=== PATIENT | female | born 1965 | race Caucasian/White ===

== ENCOUNTER 2019-03-04 10:10 | Emergency (ER) | payer BC ==
[2019-03-04 11:05] LABS: Bacteria/HPF None Seen HPF (None Seen); Bilirubin Negative (Negative); Blood, Urine Trace (Negative); Clarity Clear (Clear); Glucose, Urine (Dipstick) Normal (Negative); Leukocyte Negative Leu/uL (Negative); Nitrite Negative (Negative); Protein, Urine (Dipstick) Negative (Neg-Trace); RBC/HPF 0-3 HPF (0-3); Squamous Epithelial 0-3 HPF (0-3); Urobilinogen Normal mg/dL (Less than 2); WBC/HPF 0-3 HPF (0-3)
[2019-03-04 11:23] LABS: #Basophils 0.1 thou/uL (0.0-0.2); #Eosinphils 0.1 thou/uL (0.0-0.7); #Lymphocytes 1.3 thou/uL (1.20-3.40); #Monocytes 0.7 thou/uL (0.11-0.59); #Neutrophils 8.1 thou/uL (1.40-6.50); %Basophils 0.5 % (0.0-1.0); %Eosinophils 0.8 % (0.0-10.0); %Lymphocytes 12.4 % (21.0-51.0); %Monocytes 7.1 % (0.0-10.0); %Neutrophils 79.2 % (42.0-75.0); Hemoglobin 12.8 g/dL (12.0-16.0); Mean Corpuscular HGB CONC 34.5 g/dL (32.0-36.0); Mean Corpuscular Volume 95.7 fL (78.0-98.0); Mean Platelet Volume 7.7 fL (7.4-10.4); Platelet Count 216 thou/uL (130-400); RBC Distribution Width 11.1 % (11.5-14.5); Red Blood Cell (RBC) Count 3.89 mill/uL (4.20-5.40); White Blood Cell (WBC) Count 10.2 thou/uL (4.8-10.8)
--- NOTE | 2019-03-04 11:45 | RAD ---
2 views of the abdomen INDICATION: left-sided abdominal pain FINDINGS: The bowel gas pattern is unobstructed. No suspicious calcification is evident. Lung bases a re clear. There is mild scattered degenerative change. IMPRESSION: No acute abnormality.
[2019-03-04 11:46] LABS: ALT (SGPT) 9 U/L (8-55); AST (SGOT) 16 U/L (5-34); Albumin 4.3 g/dL (3.5-5.0); Alkaline Phosphatase 65 U/L (40-110); Anion Gap 12 mmol/L (10-20); BUN (Urea Nitrogen) 12 mg/dL (9.8-20.1); Bilirubin, Total 0.4 mg/dL (0.2-1.2); Calc. Creatinine Clearance 0 mL/min (70-130); Carbon Dioxide 25 mmol/L (22-29); Chloride 105 mmol/L (98-107); Estimated GFR-MDRD 76; Globulin 2.6 g/dL (2.4-3.5); Glucose 101 mg/dL (70-105); Potassium 4.1 mmol/L (3.5-5.1); Protein, Total 6.9 g/dL (6.0-8.3); Sodium 138 mmol/L (136-145)
--- NOTE | 2019-03-04 11:53 | RAD ---
XR Chest 1 View Portable HISTORY: Left chest and breast pain. COMPARISON: None. FINDINGS: Heart size is borderline for portable technique. Mediastinal structures appear unremarkable . The lungs are clear of infiltrates. There are no signs of failure. IMPRESSION: Borderline heart size.
[2019-03-04] MEDS ORDERED: Mag-Al 1200 mg/1200 mg/30 ML UDCUP ONE (12:00)
[2019-03-04] MEDS ORDERED: Lidocaine Viscous Sol 2% 15 ml UD Cup ONE (12:00)
[2019-03-04] MEDS ORDERED: Ondansetron ODT 4 MG TAB ONE (12:00)
== END 2019-03-04 13:17 | disposition home or self-care (01) ==
LOC: ERS 10:10
DX: K29.70 Gastritis, unspecified, without bleeding (principal); K59.00 Constipation, unspecified
CPT/HCPCS: 36415; 71045; 74019; 80053; 81003; 81015; 84484; 85025; 93005; 94760; Q0162

== ENCOUNTER 2022-05-02 13:54 | Outpatient (CLI) | payer BC | END 2022-05-02 13:55 | disposition home or self-care (01) | LOC: SCSMRI 13:54 | PROVIDERS: ATTEND Orthopaedic Surgery | DX: M23.92 Unspecified internal derangement of left knee (principal); S83.242A Other tear of medial meniscus, current injury, left knee, initial encounter; S86.812A Strain of other muscle(s) and tendon(s) at lower leg level, left leg, initial encounter; M94.262 Chondromalacia, left knee ==

== ENCOUNTER 2023-10-29 15:43 | Inpatient (IN) | payer BC ==
[~2023-10-29 15:43] MED LIST: Iopamidol-370 76% 500 ML MDV (1 ML CHARGE) ONE; Magnevist 469MG/ML 20 ML VIAL ONE
[2023-10-29 16:59] LABS: #Basophils 0.08 10x3/uL (0.0-0.2); %Basophils 1.1 % (0.0-1.0); %Eosinophils 3.9 % (0.0-10.0); %Lymphocytes 13.7 % (21.0-51.0); %Monocytes 13.8 % (0.0-10.0); %Neutrophils 67.2 % (42.0-75.0); Hematocrit 37.5 % (36.0-47.0); Hemoglobin 12.7 g/dL (12.0-16.0); Mean Corpuscular HGB CONC 33.9 g/dL (32.0-36.0); Mean Corpuscular Hemoglobin 31.9 pg (27.0-31.0); Mean Corpuscular Volume 94.2 fL (78.0-98.0); Mean Platelet Volume 10.9 fL (7.4-10.4); Platelet Count 170 10x3/uL (130-400); RBC Distribution Width 15.5 % (11.5-14.5); Red Blood Cell (RBC) Count 3.98 mill/uL (4.20-5.40)
[2023-10-29 17:16] LABS: ALT (SGPT) 228 U/L (8-55); AST (SGOT) 177 U/L (5-34); Albumin 3.4 g/dL (3.5-5.0); Alkaline Phosphatase 259 U/L (40-110); Anion Gap 11 mmol/L (10-20); BUN (Urea Nitrogen) 14 mg/dL (9.8-20.1); Bilirubin, Total 3.5 mg/dL (0.2-1.2); Calc. Creatinine Clearance 0 mL/min (70-130); Calcium 9.3 mg/dL (7.8-10.44); Carbon Dioxide 24 mmol/L (22-29); Chloride 109 mmol/L (98-107); Estimated GFR 86; Globulin 4.1 g/dL (2.4-3.5); Glucose 97 mg/dL (70-105); Lipase 10 U/L (8-78); Potassium 3.9 mmol/L (3.5-5.1); Protein, Total 7.5 g/dL (6.0-8.3); Sodium 140 mmol/L (136-145)
[2023-10-29] MEDS ORDERED: Ondansetron PF 4 MG/2 ML Vial ONE (17:45)
[2023-10-29] MEDS ORDERED: Dicyclomine 20 MG/2 ML VIAL ONE (17:45)
[2023-10-29 18:19] LABS: Bilirubin 2+ (Negative); Blood, Urine Trace (Negative); CAUTI Indications for Culture Dysuria,urgency,freq; Calcium Oxalate Crystals Rare HPF (None Seen); Clarity Clear (Clear); Glucose, Urine (Dipstick) Normal (Negative); Ketone, Urine Negative (Negative); Leukocyte Negative Leu/uL (Negative); Nitrite Negative (Negative); Protein, Urine (Dipstick) 10 mg/dL (Neg-Trace); Specific Gravity, Urine 1.026 (1.002-1.036); WBC/HPF 0-3 HPF (0-3); pH, Urine 5.5 (5.0-9.0)
[2023-10-29 18:22] LABS: Bacteria/HPF 1+ HPF (None Seen)
[2023-10-29 18:23] LABS: Urine Culture Reflex No No
[2023-10-29 18:47] LABS: Influenza A by NAA Not Detected (NotDetected); Influenza B by NAA Not Detected (NotDetected); SARS-CoV-2 NAA Rapid Test Not Detected (NotDetected)
[2023-10-29] MEDS ORDERED: traMADol HCl 50 MG TAB PO PRN (19:47)
[2023-10-29] MEDS ORDERED: Ondansetron PF 4 MG/2 ML Vial IVP PRN (19:47)
[2023-10-29] MEDS ORDERED: Ondansetron ODT 4 MG TAB PO PRN (19:47)
[2023-10-29 21:28] VITALS: BMI 35.0
[2023-10-30] MEDS: Acetaminophen 325 MG TAB PO SCH (00:13)
[2023-10-30] MEDS: Levothyroxine Sodium 75 MCG TAB PO SCH (05:07)
[2023-10-30 06:23] LABS: #Basophils 0.04 10x3/uL (0.0-0.2); %Basophils 0.6 % (0.0-1.0); %Eosinophils 2.8 % (0.0-10.0); %Lymphocytes 16.1 % (21.0-51.0); %Monocytes 11.6 % (0.0-10.0); %Neutrophils 68.5 % (42.0-75.0); Hematocrit 35.5 % (36.0-47.0); Hemoglobin 11.7 g/dL (12.0-16.0); Mean Corpuscular Hemoglobin 32.1 pg (27.0-31.0); Mean Corpuscular Volume 97.3 fL (78.0-98.0); Mean Platelet Volume 10.9 fL (7.4-10.4); Platelet Count 155 10x3/uL (130-400); RBC Distribution Width 15.6 % (11.5-14.5); Red Blood Cell (RBC) Count 3.65 mill/uL (4.20-5.40)
[2023-10-30 06:41] LABS: ALT (SGPT) 228 U/L (8-55); AST (SGOT) 196 U/L (5-34); Albumin 3.1 g/dL (3.5-5.0); Alkaline Phosphatase 238 U/L (40-110); Anion Gap 12 mmol/L (10-20); BUN (Urea Nitrogen) 11 mg/dL (9.8-20.1); Bilirubin, Total 3.8 mg/dL (0.2-1.2); Calc. Creatinine Clearance 135 mL/min (70-130); Calcium 8.8 mg/dL (7.8-10.44); Carbon Dioxide 26 mmol/L (22-29); Chloride 107 mmol/L (98-107); Estimated GFR 97; Globulin 3.7 g/dL (2.4-3.5); Glucose 93 mg/dL (70-105); Protein, Total 6.8 g/dL (6.0-8.3); Sodium 141 mmol/L (136-145)
[2023-10-30] MEDS: Enoxaparin 40 MG (0.4 mL) SYRINGE SC SCH (09:36)
[2023-10-31 00:29] VITALS: BP 125/77; TEMP 98.8
== END 2023-10-31 01:10 | disposition short-term general hospital (02) | DRG 445 ==
LOC: ERS 15:43 → SURG B 19:47
PROVIDERS: ADMIT Internal Medicine; ATTEND Internal Medicine
DX: K83.1 Obstruction of bile duct (principal); N39.0 Urinary tract infection, site not specified; K82.8 Other specified diseases of gallbladder; R19.7 Diarrhea, unspecified; E03.9 Hypothyroidism, unspecified; L29.9 Pruritus, unspecified; Z87.891 Personal history of nicotine dependence; Z98.890 Other specified postprocedural states
CPT/HCPCS: 36415; 74177; 74183; 76377; 80053; 81001; 83605; 83690; 84443; 85025; 96374; A9579; J2405; Q9967

== ENCOUNTER 2023-12-06 04:01 | Inpatient (IN) | payer BC ==
[2023-12-06 05:04] VITALS: BMI 33.4
[2023-12-06] MEDS ORDERED: traMADol HCl 50 MG TAB PO PRN (08:17)
[2023-12-06] MEDS ORDERED: Guaifenesin DM 100-10/5 ML UDCUP PO PRN (08:17)
[2023-12-06] MEDS ORDERED: Acetaminophen 325 MG TAB PO PRN (08:17)
[2023-12-06] MEDS ORDERED: Ondansetron PF 4 MG/2 ML Vial IVP PRN (08:17)
[2023-12-06] MEDS ORDERED: Senokot S 8.6-50 MG TAB PO PRN (08:17)
[2023-12-06] MEDS ORDERED: Iopamidol-370 76% 500 ML MDV (1 ML CHARGE) ONE (10:05)
[2023-12-06] MEDS: Pantoprazole DR 40 MG TAB PO SCH (10:13)
[2023-12-06] MEDS: Enoxaparin 40 MG (0.4 mL) SYRINGE SC SCH (10:14)
[2023-12-06] MEDS: LevoFLOXacin 500 mg/D5W 500 MG in Premix 1 BAG IVPB SCH (10:16)
[2023-12-06] MEDS: Sodium Chloride 0.9% 1,000 ML IV SCH (10:17)
[2023-12-06] MEDS: Cosyntropin 250 MCG VIAL SLOW IVP SCH (10:20)
[2023-12-07 05:11] LABS: #Basophils 0.03 10x3/uL (0.0-0.2); %Basophils 0.3 % (0.0-1.0); %Eosinophils 1.4 % (0.0-10.0); %Lymphocytes 11.9 % (21.0-51.0); %Neutrophils 74.8 % (42.0-75.0); Hematocrit 29.7 % (36.0-47.0); Hemoglobin 10.3 g/dL (12.0-16.0); Mean Corpuscular HGB CONC 34.7 g/dL (32.0-36.0); Mean Corpuscular Hemoglobin 32.3 pg (27.0-31.0); Mean Corpuscular Volume 93.1 fL (78.0-98.0); Mean Platelet Volume 9.3 fL (7.4-10.4); Platelet Count 250 10x3/uL (130-400); RBC Distribution Width 13.1 % (11.5-14.5); Red Blood Cell (RBC) Count 3.19 mill/uL (4.20-5.40)
[2023-12-07] MEDS: Levothyroxine Sodium 75 MCG TAB PO SCH (05:16)
[2023-12-07 05:21] LABS: ALT (SGPT) 66 U/L (8-55); AST (SGOT) 28 U/L (5-34); Albumin 2.3 g/dL (3.5-5.0); Alkaline Phosphatase 127 U/L (40-110); Anion Gap 9 mmol/L (10-20); BUN (Urea Nitrogen) 29 mg/dL (9.8-20.1); Bilirubin, Total 0.5 mg/dL (0.2-1.2); Calc. Creatinine Clearance 92 mL/min (70-130); Calcium 7.9 mg/dL (7.8-10.44); Carbon Dioxide 18 mmol/L (22-29); Chloride 110 mmol/L (98-107); Estimated GFR 65; Globulin 3.2 g/dL (2.4-3.5); Glucose 95 mg/dL (70-105); Magnesium 2.4 mg/dL (1.6-2.6); Potassium 4.1 mmol/L (3.5-5.1); Protein, Total 5.5 g/dL (6.0-8.3); Sodium 133 mmol/L (136-145)
[2023-12-07 05:22] LABS: Phosphorus 3.2 mg/dL (2.3-4.7)
[2023-12-07 05:41] LABS: Free T4 (Free Thyroxine) 1.59 ng/dL (0.70-1.48); Thyroid Stimulating Hormone 1.0704 uIU/mL (0.35-4.94)
[2023-12-08] MEDS: LevoFLOXacin 500 MG TAB PO SCH (05:12)
[2023-12-08 07:57] LABS: ALT (SGPT) 124 U/L (8-55); AST (SGOT) 87 U/L (5-34); Albumin 2.2 g/dL (3.5-5.0); Alkaline Phosphatase 195 U/L (40-110); Anion Gap 12 mmol/L (10-20); BUN (Urea Nitrogen) 19 mg/dL (9.8-20.1); Bilirubin, Direct 0.3 mg/dL (0.1-0.3); Bilirubin, Total 0.5 mg/dL (0.2-1.2); Calc. Creatinine Clearance 96 mL/min (70-130); Carbon Dioxide 19 mmol/L (22-29); Chloride 110 mmol/L (98-107); Estimated GFR 69; Glucose 95 mg/dL (70-105); Potassium 3.7 mmol/L (3.5-5.1); Protein, Total 5.4 g/dL (6.0-8.3); Sodium 137 mmol/L (136-145)
[2023-12-08 14:50] VITALS: BP 107/72; TEMP 97.8
== END 2023-12-08 14:55 | disposition home or self-care (01) | DRG 682 ==
LOC: T4-B 04:41
PROVIDERS: ADMIT Internal Medicine; ATTEND Internal Medicine
DX: N17.9 Acute kidney failure, unspecified (principal); K83.1 Obstruction of bile duct; C22.1 Intrahepatic bile duct carcinoma; E87.1 Hypo-osmolality and hyponatremia; C23 Malignant neoplasm of gallbladder; E66.9 Obesity, unspecified; E03.9 Hypothyroidism, unspecified; E86.0 Dehydration; I10 Essential (primary) hypertension; R53.1 Weakness; Z98.890 Other specified postprocedural states; Z82.49 Family history of ischemic heart disease and other diseases of the circulatory system; Z90.49 Acquired absence of other specified parts of digestive tract; Z83.3 Family history of diabetes mellitus; Z68.33 Body mass index [BMI] 33.0-33.9, adult
CPT/HCPCS: 36415; 36416; 74174; 80048; 80053; 80076; 80400; 83735; 84100; 84439; 84443; 84481; 85025; 87040; J0834; J1650; J1956; J7030; Q9967

== ENCOUNTER 2024-01-05 10:44 | Inpatient (IN) | payer BC ==
[2024-01-05] MEDS ORDERED: Ondansetron PF 4 MG/2 ML Vial ONE (11:29)
[2024-01-05 11:31] LABS: #Basophils 0.06 10x3/uL (0.0-0.2); %Basophils 0.4 % (0.0-1.0); %Eosinophils 0.6 % (0.0-10.0); %Lymphocytes 7.5 % (21.0-51.0); %Monocytes 10.1 % (0.0-10.0); Mean Corpuscular HGB CONC 34.2 g/dL (32.0-36.0); Mean Corpuscular Hemoglobin 32.4 pg (27.0-31.0); Mean Corpuscular Volume 94.8 fL (78.0-98.0); Mean Platelet Volume 10.2 fL (7.4-10.4); Platelet Count 229 10x3/uL (130-400); Red Blood Cell (RBC) Count 4.01 mill/uL (4.20-5.40)
[2024-01-05 11:50] LABS: ALT (SGPT) 267 U/L (8-55); AST (SGOT) 128 U/L (5-34); Albumin 3.8 g/dL (3.5-5.0); Alkaline Phosphatase 240 U/L (40-110); Anion Gap 18 mmol/L (10-20); BUN (Urea Nitrogen) 30 mg/dL (9.8-20.1); Bilirubin, Total 1.2 mg/dL (0.2-1.2); Calc. Creatinine Clearance 0 mL/min (70-130); Calcium 9.4 mg/dL (7.8-10.44); Carbon Dioxide 16 mmol/L (22-29); Chloride 100 mmol/L (98-107); Estimated GFR 27; Globulin 5.1 g/dL (2.4-3.5); Glucose 113 mg/dL (70-105); Magnesium 2.5 mg/dL (1.6-2.6); Potassium 3.9 mmol/L (3.5-5.1); Protein, Total 8.9 g/dL (6.0-8.3); Sodium 130 mmol/L (136-145)
[2024-01-05] MEDS ORDERED: Senokot S 8.6-50 MG TAB PO PRN (15:31)
[2024-01-05] MEDS ORDERED: Ondansetron ODT 4 MG TAB PO PRN (15:31)
[2024-01-05] MEDS: FLU (Fluarix Triv) TS24-25(6MOS UP)/PF 45 MCG/0.5 ML Syringe IM ONE (16:21)
[2024-01-05] MEDS: Sodium Chloride 0.9% 1,000 ML IV SCH (16:22)
[2024-01-05] MEDS: Cefdinir 300 MG CAP PO SCH (19:49)
[2024-01-05] MEDS: Ondansetron PF 4 MG/2 ML Vial IVP PRN (22:34)
[2024-01-06 05:28] LABS: #Basophils 0.03 10x3/uL (0.0-0.2); %Basophils 0.3 % (0.0-1.0); %Eosinophils 1.4 % (0.0-10.0); %Lymphocytes 10.6 % (21.0-51.0); %Monocytes 14.1 % (0.0-10.0); %Neutrophils 73.2 % (42.0-75.0); Hematocrit 31.3 % (36.0-47.0); Hemoglobin 10.7 g/dL (12.0-16.0); Mean Corpuscular HGB CONC 34.2 g/dL (32.0-36.0); Mean Corpuscular Volume 93.7 fL (78.0-98.0); Mean Platelet Volume 10.8 fL (7.4-10.4); Platelet Count 154 10x3/uL (130-400); RBC Distribution Width 13.2 % (11.5-14.5); Red Blood Cell (RBC) Count 3.34 mill/uL (4.20-5.40)
[2024-01-06 06:16] LABS: ALT (SGPT) 216 U/L (8-55); AST (SGOT) 106 U/L (5-34); Albumin 2.9 g/dL (3.5-5.0); Alkaline Phosphatase 178 U/L (40-110); Anion Gap 13 mmol/L (10-20); BUN (Urea Nitrogen) 27 mg/dL (9.8-20.1); Bilirubin, Total 0.8 mg/dL (0.2-1.2); Calc. Creatinine Clearance 0 mL/min (70-130); Calcium 8.5 mg/dL (7.8-10.44); Carbon Dioxide 15 mmol/L (22-29); Chloride 107 mmol/L (98-107); Estimated GFR 38; Globulin 4.1 g/dL (2.4-3.5); Glucose 99 mg/dL (70-105); Sodium 131 mmol/L (136-145)
[2024-01-06] MEDS: Pantoprazole DR 40 MG TAB PO SCH (08:56)
[2024-01-06 13:37] VITALS: BMI 33.4
[2024-01-07] MEDS: Sodium Bicarbonate Tab 325 MG TAB PO SCH (08:28)
[2024-01-07] MEDS: Sodium Bicarbonate 75 MEQ in Dextrose 5 %-0.45 % NaCl 1,000 ML IV SCH ×2 (08:28→09:30)
[2024-01-07 13:29] LABS: Anion Gap 14 mmol/L (10-20); BUN (Urea Nitrogen) 23 mg/dL (9.8-20.1); Calc. Creatinine Clearance 59 mL/min (70-130); Calcium 8.4 mg/dL (7.8-10.44); Carbon Dioxide 17 mmol/L (22-29); Chloride 108 mmol/L (98-107); Estimated GFR 41; Glucose 120 mg/dL (70-105); Potassium 3.5 mmol/L (3.5-5.1); Sodium 135 mmol/L (136-145)
[2024-01-07 13:44] VITALS: BMI 31.5
[2024-01-07 16:22] VITALS: BP 108/72; TEMP 98.1
== END 2024-01-07 16:04 | disposition home or self-care (01) | DRG 683 ==
LOC: ERS 10:44 → T4-A 15:37 → OBSVTOIN 01-06 11:06
PROVIDERS: ADMIT Hospitalist; ATTEND Family Medicine
DX: N17.9 Acute kidney failure, unspecified (principal); E87.1 Hypo-osmolality and hyponatremia; N39.0 Urinary tract infection, site not specified; E86.0 Dehydration; E03.9 Hypothyroidism, unspecified; E66.9 Obesity, unspecified; Z68.31 Body mass index [BMI] 31.0-31.9, adult; Z90.49 Acquired absence of other specified parts of digestive tract; Z98.890 Other specified postprocedural states; Z79.899 Other long term (current) drug therapy
CPT/HCPCS: 36415; 71045; 74176; 80048; 80053; 83605; 83735; 83880; 84443; 85025; 93005; 94760; 96361; 96374; 96376; G0378; J2405; J7030; J7042